=== PATIENT | female | born 1950 | race Caucasian/White ===

== ENCOUNTER 2021-08-11 16:52 | Observation (INO) ==
[2021-08-11 17:23] LABS: Basophils % 0.5 % (0.0-0.8); Eosinophils # 0.1 10*3/uL (0.0-0.87); Eosinophils % 0.8 % (0.00-10.9); Hematocrit 41.8 VOL% (35.7-47.0); Hemoglobin 13.5 GM/DL (12.0-16.0); Immature Granulocytes % 0.4 %; Immature Granulocytes Absolute 0.03 #; Lymphocytes # 2.5 10*3/uL (1.4-4.0); Lymphocytes % 32.3 % (21.3-54.2); Mean Corpuscular HGB Conc 32.3 GM/DL (32-36); Mean Corpuscular Volume 92.5 FL (87-102); Mean Platelet Volume 10.7 FL (9.6-12.0); Platelet Count 219 T/CUMM (130-400); Red Blood Count 4.52 MC/CUMM (3.8-5.5); Red Cell Distribution Width 13.3 % (9.3-17.3); White Blood Count 7.7 T/CUMM (4-12)
[2021-08-11] MEDS ORDERED: hydrALAZINE 20 MG/1 ML VIAL IV STA (17:29)
[2021-08-11 17:47] LABS: Alanine Aminotransferase 23 U/L (13-56); Albumin 3.7 G/DL (3.4-5.0); Alkaline Phosphatase 62 U/L (45-117); Aspartate Amino Transferase 17 U/L (0-37); Bilirubin,Total < 0.39 MG/DL (0.20-1.00); Blood Urea Nitrogen 12 MG/DL (7-18); Calcium 9.1 MG/DL (8.5-10.1); Carbon Dioxide 26 MMOL/L (21-32); Estimated Glom Filtration Rate 64 ML/MIN; Glucose 160 MG/DL (74-106); Osmolality,Calculated 285.1 MOS/KG (273-304); Potassium 3.6 MMOL/L (3.5-5.1); Sodium 142 MMOL/L (136-145); Total Protein 7.4 G/DL (6.4-8.2)
[2021-08-11] MEDS ORDERED: ASPIRIN 325 MG TABLET PO STA (18:20)
[2021-08-11] MEDS ORDERED: ACETAMINOPHEN 325 MG TABLET PO PRN (18:22)
[2021-08-11] MEDS ORDERED: ONDANSETRON 4 MG/2 ML VIAL IV PRN (18:22)
[2021-08-11] MEDS ORDERED: ASPIRIN CHEW 81 MG TABLET PO SCH (21:00)
[2021-08-11] MEDS: DOCUSATE SODIUM 100 MG CAPSULE PO SCH (21:32)
[2021-08-12] MEDS: DOCUSATE SODIUM 100 MG CAPSULE PO SCH (08:55)
[2021-08-12] MEDS ORDERED: INFLUENZA VIRUS VACCINE 0.5 ML SYRINGE IM ONE (09:00)
[2021-08-12] MEDS ORDERED: PANTOPRAZOLE 40 MG TABLET PO SCH (09:00)
[2021-08-12] MEDS ORDERED: carvediloL 3.125 MG TABLET PO SCH (09:00)
[2021-08-12] MEDS: CLORAZEPATE 3.75 MG TABLET PO SCH ×2 (10:04→14:52)
[2021-08-12 15:34] VITALS: BP 126/59
[2021-08-12] MEDS ORDERED: carvediloL 6.25 MG TABLET PO SCH (21:00)
== END 2021-08-12 17:30 | disposition home or self-care (01) ==
LOC: N.TELES 16:52 → N.ED 16:52 → N.TELES 20:44
PROVIDERS: ADMIT Family Medicine; ATTEND Family Medicine